=== PATIENT | female | born 1985 | race Two or more races ===

== ENCOUNTER 2017-06-06 07:00 | Emergency (ER) | payer OTHER ==
[~2017-06-06] VITALS: Ht 162.6 cm; Wt 45.4 kg
--- NOTE | 2017-06-06 07:08 | NUR ---
CALLED PT IN [place], NO REPONSE
[2017-06-06] MEDS ORDERED: IBUPROFEN 600 MG TABLET PO ONE ×2 (07:30→07:32)
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
--- NOTE | 2017-06-06 08:17 | NUR ---
PATIENT SIGNED WAIVER FORM. PATIENT TAKEN TO XRAY VIA WHEELCHAIR.
--- NOTE | 2017-06-06 08:32 | NUR ---
PATIENT RETURNED FROM XRAY IN STABLE CONDITION.
[2017-06-06 08:50] VITALS: BP 124/68
--- NOTE | 2017-06-06 08:52 | NUR ---
Patient discharged to home in stable condition. Written and verbal after care instructions given. Patient verbalizes understanding of instruction.
== END 2017-06-06 08:52 | disposition home or self-care (01) ==
LOC: ER 07:01
DX: S20.211A Contusion of right front wall of thorax, initial encounter (principal); S70.01XA Contusion of right hip, initial encounter; F17.200 Nicotine dependence, unspecified, uncomplicated; V43.62XA Car passenger injured in collision with other type car in traffic accident, initial encounter; Y93.89 Activity, other specified; Y92.488 Other paved roadways as the place of occurrence of the external cause; Y99.8 Other external cause status
CPT/HCPCS: 71010; 72170; 99284; A4606; Z7610